=== PATIENT | male | born 1990 | race Caucasian/White ===

== ENCOUNTER 2021-05-18 10:05 | Emergency (ER) | payer BC, MEDICAID, SELFPAY ==
[2021-05-18 10:42] VITALS: PULSE 100; RESP 18; TEMP 37.4; O2SAT 98; BMI 32.5
--- NOTE | 2021-05-18 10:51 | ED_ITS ---
HPI - General Adult General: Chief complaint: General Medical Stated complaint: Throat abnormality Time Seen by Provider: 05/18/21 10:10 History of Present Illness: Patient with sore throat the last 3 days. Says it hurts to swallow. Was seen at [facility] urgent care had Covid and strep swab done yesterday were negative. Patient is not prescribed any medications. Associated symptoms: Deny chest pain, dyspnea, headache(s), nausea, rash or v omiting Review of Systems Const: Denies: fever(s), chills or body aches Eyes: Denies: eye discomfort ENMT: Reports: throat pain Card: Denies: chest pain Resp: Denies: dyspnea GI: Denies: abdominal pain, nausea or vomiting Skin/Breast: Denies: rash Neuro: Denies: headache(s) Psych: Denies: depression or suicidal ideation Physical Exam Const: COMMON NORMALS: no acute distress, patient oriented x3 and alert HENMT: COMMON NORMALS: normocephalic and external ears normal HEAD & SCALP: normocephalic EXTERNAL EAR: Yes external ears normal THROAT: uvula midline and posterior oropharynx abnormal erythema (Right side) and exudates (Right side) Eye: COMMON NORMALS: EOMs intact bilaterally Neck/C-Spine: COMMON NORMALS: no JVD Lymph: OTHER: No anterior cervical lymphadenopathy but is tender right side Resp: COMMON NORMALS: normal respiratory effort and No use of accessory muscles Cardio: COMMON NORMALS: no JVD GI: INSPECTION: Yes normal to inspection Extremity: COMMON NORMALS: normal to inspection and full ROM Neuro: COMMON NORMALS: patient oriented x3 SENSORIUM/ORIENTATION: Yes alert Psych: COMMON NORMALS: mental status grossly normal Skin: COMMON NORMALS: no rashes or lesions noted GENERAL SKIN EXAM: no rashes or lesions noted Course Vital Signs: Vital signs: Vital Signs Temperature 99.4 F 05/18/21 10:42 Pulse Rate 100 05/18/21 10:42 Respiratory Rate 18 05/18/21 10:42 Pulse Oximetry 98 05/18/21 10:42 [facility] - General Adult Medical Decision Making Nonstrep pharyngitis Discharge Plan Discharge Patient Disposition: Home Clinical Impression: Pharyngitis Condition: Stable Prescriptions: New amoxicillin 500 mg capsule 500 mg PO TID 10 Days Qty: 30 0RF Discharge Orders: Discharge ED (Routine); Ordered 05/18/21 Ordered By: Ronal Hussein Discharge Diet: Usual diet Discharge Activity: Increase activity as tolerated Patient Instructions: Pharyngitis (ED) Activity Restrictions/Additional Instructions: Follow-up with medical provider as directed. Take medications as prescribed. R eturn to the ER or your medical provider if condition worsens. Please read and understand discharge instructions. If any questions ask please. Stand Alone Forms: Work/School Release Coding Level of Care Code ED Certified Activities Director for Juliane Lopez
== END 2021-05-18 11:44 | disposition home or self-care (01) ==
PROVIDERS: Emergency Provider Nurse Practitioner Family
DX: J02.9 Acute pharyngitis, unspecified (principal)
CPT/HCPCS: 99281